=== PATIENT | male | born 1965 | race Caucasian/White ===

== ENCOUNTER 2018-07-22 14:31 | Emergency (ER) | payer BC ==
[~2018-07-22] VITALS: Wt 80.0 kg
[2018-07-22] MEDS ORDERED: SOD CHLORIDE 0.9% 1,000 ML IV STA (15:15)
--- NOTE | 2018-07-22 15:19 | ERD ---
ER Documentation Chief Complaint Chief Complaint r side facial numbness and blurry vision since 0900. umaña for 2 wks. HPI This is a 53-year-old male is brought in by ambulance because this morning he complained of right facial bleeding at around 9 AM. The patient says for about 3 weeks now he will wake up with a frontal headache today he woke up the same way and went to work then around 9:00 in the morning he noticed his right cheek was tingling but did not have any weakness in his face arms legs no speech difficulty, he said his right eye vision was a slight blurriness to it but that is now resolved. He said he is about 95% back to baseline. He was found to be hypertensive by EMS ROS All systems reviewed and are negative except as per history of present illness. Medications Home Meds Reported Medications Atorvastatin Calcium* (Atorvastatin Calcium*) 20 Mg Tablet, 20 MG PO QHS, #30 TAB 07/22/18 Allergies Allergies: Coded Allergies: No Known Allergy (Unverified , 07/22/18) PMhx/Soc History of Surgery: Yes (achilles tendon repair, knee sx) Anesthesia Reaction: No Hx Neurological Disorder: No Hx Respiratory Disorders: No Hx Cardiac Disorders: Yes (hyperlipidemia) Hx Psychiatric Problems: No Hx Miscellaneous Medical Probl: No Hx Alcohol Use: Yes (social) Hx Substance Use: No Hx Tobacco Use: No Smoking Status: Never smoker FmHx Family History: No coronary disease Physical Exam Vitals Vital Signs Date Temp Pulse Resp B/P (MAP) Pulse Ox O2 O2 Flow FiO2 Time Delivery Rate 07/22/18 74 18 155/74 98 Room Air 15:02 (101) 07/22/18 98.0 80 18 135/80 98 14:48 (98) Physical Exam Const: Well-developed, well-nourished Head: Atraumatic, normocephalic Eyes: Normal Conjunctiva, PERRLA, EOMI, normal sclera, no nystagmus ENT: Normal External Ears, Nose and Mouth, moist mucus membranes. Neck: Full range of motion. No meningismus, no lymphadenopathy. Resp: Clear to auscultation bilaterally, no wheezing, rhonchi, rales Cardio: Regular rate and rhythm, no murmurs, S1 S2 present Abd: Soft, non tender x 4, non distended. Normal bowel sounds, no guarding or rebound, no pulsitile abdominal masses or bruits Skin: No petechiae or rashes, no ecchymosis , no maculopapular rash Back: No midline or flank tenderness Ext: No cyanosis, or edema, FROM x 4, normal inspection, neurovascularly intact x 4 Neur: Awake and alert, STR 5/5 x 4, sensation intact x 4, no focal findings, cerebellum intact Psych: Normal Mood and Affect Result Diagram: 07/22/18 1522 07/22/18 1522 Results 24 hrs Laboratory Tests Test 07/22/18 15:22 White Blood Count 8.4 10^3/ul Red Blood Count 4.87 10^6/ul Hemoglobin 14.6 g/dl Hematocrit 44.9 % Mean Corpuscular Volume 92.2 fl Mean Corpuscular Hemoglobin 30.0 pg Mean Corpuscular Hemoglobin Concent 32.5 g/dl Red Cell Distribution Width 12.9 % Platelet Count 292 10^3/UL Mean Platelet Volume 10.4 fl Immature Granulocytes % 0.800 % Neutrophils % 68.6 % Lymphocytes % 19.9 % Monocytes % 8.3 % Eosinophils % 1.4 % Basophils % 1.0 % Nucleated Red Blood Cells % 0.0 /100WBC Immature Granulocytes # 0.070 10^3/ul Neutrophils # 5.7 10^3/ul Lymphocytes # 1.7 10^3/ul Monocytes # 0.7 10^3/ul Eosinophils # 0.1 10^3/ul Basophils # 0.1 10^3/ul Nucleated Red Blood Cells # 0.0 10^3/ul Sodium Level 139 mmol/L Potassium Level 4.1 mmol/L Chloride Level 105 mmol/L Carbon Dioxide Level 24 mmol/L Anion Gap 10 Blood Urea Nitrogen 17 mg/dl Creatinine 1.10 mg/dl Est Glomerular Filtrat Rate mL/min > 60 mL/min Glucose Level 98 mg/dl Calcium Level 9.8 mg/dl Current Medications Medications Dose Sig/Stacia Start Time Status Last (Trade) Ordered Route PRN Stop Time Admin Dose Reason Admin Sodium 1,000 ml @ Q1H STAT 07/22/18 DC 07/22/18 Chloride 1,000 mls/hr IV 15:15 15:23 07/22/18 16:14 Aspirin 324 mg ONCE ONCE 07/22/18 DC 07/22/18 (Aspirin) PO 15:30 15:22 07/22/18 15:31 Procedures/MDM This is not a code stroke the patient's symptoms are 95% resolved and this would not affect is activities of daily living, he does not need TPA Ordering MD: MARIO ALBERTO HEAD DO Location: E/R Room/Bed: PROCEDURE: CT Head without contrast. CLINICAL INDICATION: Headache TECHNIQUE: The study was performed utilizing a GE 64-slice multidetector CT scanner. Direct spiral axial CT images of the brain were obtained from the vertex to the skull base without contrast. Coronal and sagittal reformat images are provided. The CTDI vol is 39.2 mGy and the DLP is 634.23 mGy-cm. The images were reviewed on a PACS workstation. DICOM images are available. One or more of the following dose reduction techniques were used: Automated exposure control. Adjustment of the mA and/or kV according to patient size. Use of iterative reconstruction technique. COMPARISON: No prior studies are available for comparison. FINDINGS: The ventricles and cortical sulci are within normal limits. The nazario-white matter differentiation is maintained. No intra or extra-axial fluid collection or mass effect or shift in the midline structures is seen. The visualized paranasal sinuses, mastoid air cells, orbits, and calvarium are unremarkable. IMPRESSION: No acute intracranial pathology. RPTAT: HPNM Physician Vidal Date Time Electronically viewed and signed by Dimitrios Ray Physician on 07/22/2018 15:51 / CC: MARIO ALBERTO HEAD DO [id number] Reexamination the patient is completely asymptomatic. I discussed with him this could be from having a blood pressure of a systolic greater than 200 as a reason for symptoms or possibly a very minor ischemic event in the brain. His blood pressure is 118/82 right now. I will discharge him home with follow-up with his primary which she has. We also describes discussed him having probable sleep apnea and to get a sleep study. I will discharge him home with [facility] and advised him to start taking one baby aspirin a day Patient feels much better at this time, and vital signs are normal, symptoms have improved. I did give strict instructions to return to the ED if symptoms continue or worsen, patient will otherwise follow-up with primary care physician. Patient understood instructions and agreed to plan. Disclaimer: Inadvertent spelling and grammatical errors are likely due to EHR/dictation software use and do not reflect on the overall quality of patient care. Also, please note that the electronic time recorded on this note does not necessarily reflect the actual time of the patient encounter. Departure Diagnosis: Primary Impression: Numbness Condition: Stable MARIO ALBERTO HEAD DO Jul 22, 2018 15:19
[2018-07-22] MEDS ORDERED: ASPIRIN 81 MG TAB PO ONE (15:30)
[2018-07-22] MEDS ORDERED: ATOR20TA38 PO (15:38)
[2018-07-22] MEDS ORDERED: HYDR-4011 PO (17:35)
[2018-07-22 17:36] VITALS: BP 118/82; PULSE 68; RESP 18
== END 2018-07-22 17:43 | disposition home or self-care (01) ==
LOC: E/R 14:31
DX: R20.0 Anesthesia of skin (principal); R51 Headache
CPT/HCPCS: 36415; 70450; 80048; 85025; 93005; 99285; J7030